=== PATIENT | male | born 1960 | race Caucasian/White ===

== ENCOUNTER 2018-05-03 03:39 | Emergency (ER) | payer MEDICAID ==
[2018-05-03] MEDS ORDERED: IBUPROFEN 200 MG TAB PO ONE (04:02)
[2018-05-03] MEDS ORDERED: ACETAMINOPHEN 500 MG TAB PO ONE (04:02)
[2018-05-03 04:44] LABS: CREATINE KINASE 1071 IU/L (0-224)
[2018-05-03] MEDS ORDERED: NS 1,000 ML IV ONE ×2 (04:50→05:04)
[2018-05-03] MEDS ORDERED: KETOROLAC 15 MG/1 ML SDV IVP ONE (05:01)
[2018-05-03] MEDS ORDERED: KETOROLAC 15 MG/1 ML SDV ONE (05:02)
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
[2018-05-03 06:12] VITALS: BP 156/90
== END 2018-05-03 06:05 | disposition home or self-care (01) ==
DX: M79.662 Pain in left lower leg (principal); E86.9 Volume depletion, unspecified; Z59.0 Homelessness
CPT/HCPCS: 96374; J1885

== ENCOUNTER 2018-05-03 07:28 | Emergency (ER) | payer MEDICAID ==
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
[2018-05-03 08:21] VITALS: BP 155/78
== END 2018-05-03 09:16 | disposition home or self-care (01) ==
DX: M79.662 Pain in left lower leg (principal); Z59.0 Homelessness